=== PATIENT | female | born 1950 | race Caucasian/White ===

== ENCOUNTER 2024-06-02 07:12 | Inpatient (IN) | payer OTHER ==
[2024-06-02] VITALS (12 sets, daily range): BP systolic 89–121; BP diastolic 52–88; PULSE 97–147; RESP 14–28; TEMP 97.6–98; O2SAT 88–100
[~2024-06-02] VITALS: Ht 165.1 cm; Wt 107.0 kg
[2024-06-02 08:33] LABS: Basophils # (auto) 0.1 10 ^3/uL (0-0.2); Basophils % (auto) 0.6 % (0.0-2.0); Eosinophils # (auto) 0.4 10 ^3/uL (0-0.8); Eosinophils % (auto) 3.3 % (0.0-7.0); Hematocrit 45.3 % (36.0-46.0); Hemoglobin 14.4 g/dL (12.2-16.2); Lymphocytes # (auto) 1.9 10 ^3/uL (0.4-5.4); Lymphocytes % (auto) 13.7 % (10.0-50.0); Mean Corpuscular Hemoglobin 30.5 pg (28.0-32.0); Mean Corpuscular Hgb Conc. 31.8 g/dL (32.0-36.0); Monocytes # (auto) 0.8 10 ^3/uL (0-1.3); Monocytes % (auto) 6.2 % (0.0-12.0); Neutrophils # (auto) 10.4 10 ^3/uL (1.6-8.6); Neutrophils % (auto) 76.2 % (37.0-80.0); Nucleated Red Blood Cells % 0.1 %; Platelet Count (auto) 285 10^3/uL (140-450); Red Blood Cells 4.72 10^6/uL (4.0-5.20); Red Cell Distribution Width 15.6 % (11.8-14.3); White Blood Cell 13.6 10^3/uL (4.4-10.8)
[2024-06-02 08:40] LABS: Albumin 4.1 g/dL (3.2-4.8); Alkaline Phosphatase 56 U/L (46-116); Anion Gap 12 (5-15); Aspartate Aminotransferase 17 U/L (13-40); BUN/Creatinine Ratio 9.4 (10.0-20.0); Bilirubin, Total 0.4 mg/dL (0.2-1.0); Blood Urea Nitrogen 10 mg/dL (9-23); Calcium 9.5 mg/dL (8.7-10.4); Carbon Dioxide 21 mmol/L (20-30); Chloride 107 mmol/L (98-107); Glucose 176 mg/dL (74-106); Potassium 3.9 mmol/L (3.5-5.1); Sodium 140 mmol/L (136-145)
[2024-06-02 08:42] LABS: Alanine Aminotransferase < 9 U/L (7-40)
[2024-06-02 08:43] LABS: Base Excess -4.7 mmol/L (-2.0-3.0)
[2024-06-02] MEDS: ACETAMINOPHEN 500 MG TAB PO ONE (09:12)
[2024-06-02] MEDS: ENOXAPARIN SOD 120 MG/0.8 ML SYRINGE SC ONE (09:12)
[2024-06-02] MEDS ORDERED: FUROSEMIDE 40 MG/4 ML VIAL IV ONE (09:45)
[2024-06-02] MEDS: IOHEXOL 350 MG/ML 100ML IJ ONE (09:55)
[2024-06-02] MEDS: cefTRIAXone 1GM/50ML D5W 50 ML IV ONE (10:03)
[2024-06-02] MEDS: LORazepam 2MG/ML-1ML VIAL IV ONE (10:03)
[2024-06-02] MEDS: AZITHROMYCIN 500MG/ 250ML 250 ML IV ONE (10:35)
[2024-06-02] MEDS: HEPARIN SODIUM (PORCINE) 5000 UNITS/ML 1ML VIAL IV ONE (11:00)
[2024-06-02 11:28] LABS: Lactic Acid w/Reflex 2.1 mmol/L (0.4-2.0)
[2024-06-02 12:03] LABS: INR 1.14 (0.9-1.15); Partial Thromboplastin Time 27.4 SEC (24.5-34.5)
[2024-06-02] MEDS: ALBUMIN 25% 50 ML IV ONE ×3 (13:15→14:45)
[2024-06-02] MEDS ORDERED: NITROGLYCERIN 0.4 MG SL TAB SL PRN (13:30)
[2024-06-02] MEDS ORDERED: MORPHINE SULFATE INJ 2 MG/ml SYRG IV PRN ×3 (13:30→13:45)
[2024-06-02] MEDS ORDERED: ONDANSETRON HCL 4 MG/2 ML VIAL IV PRN (13:45)
[2024-06-02] MEDS: NOREPINEPHRINE 8 MG/250ML KIT 250 ML IV SCH (13:45)
[2024-06-02] MEDS: FAMOTIDINE 20 MG TAB PO SCH (14:00)
[2024-06-02] MEDS: fentaNYL CITRATE 100 MCG/2 ML VL ONE (14:11)
[2024-06-02] MEDS: MIDAZOLAM HCL 2MG/2ML 2ml VIAL (1mg/ml) ONE (14:11)
[2024-06-02] MEDS: IODIXANOL 320MG/ML 100ML BTL IV ONE (14:20)
[2024-06-02] MEDS: HEPARIN SODIUM (PORCINE) 5000 UNITS/ML 1ML VIAL ONE ×2 (14:52→15:49)
[2024-06-02] MEDS: HEPARIN 1,000 UNITS/ml 1ML VIAL ONE (15:23)
[2024-06-02 18:05] LABS: Urine Bacteria FEW /hpf (None Seen); Urine Blood Negative /uL (Negative); Urine Clarity Clear (Clear); Urine Color Yellow (Yellow); Urine Mucus FEW (None Seen); Urine Protein, UAD 1+ (Negative); Urine Urobilinogen Normal (Negative); Urine WBC 2 /hpf (0 - 5)
[2024-06-02 18:06] LABS: Urine Specific Gravity > 1.035 (1.001-1.035)
[2024-06-02] MEDS: HEPARIN DRIP/D5W 100UNITS/ML 250 ML IV SCH (18:30)
[2024-06-02 19:11] LABS: Body Fluid Polymorphonuclear 4 % (0-25); Body Fluid Red Blood Cells 2580 CUMM (0-2000); Body Fluid White Blood Cells 895 CUMM (0-200)
[2024-06-03] VITALS (44 sets, daily range): BP systolic 86–113; BP diastolic 53–72; PULSE 87–108; RESP 14–26; TEMP 97.9–99.1; O2SAT 89–100
[2024-06-03 01:10] LABS: INR 1.15 (0.9-1.15); Partial Thromboplastin Time 55.6 SEC (24.5-34.5); Prothrombin Time 12.1 sec (9.3-11.8)
[2024-06-03 07:24] LABS: Basophils # (auto) 0 10 ^3/uL (0-0.2); Basophils % (auto) 0.5 % (0.0-2.0); Eosinophils # (auto) 0.4 10 ^3/uL (0-0.8); Eosinophils % (auto) 3.9 % (0.0-7.0); Hematocrit 35.2 % (36.0-46.0); Hemoglobin 11.8 g/dL (12.2-16.2); Lymphocytes # (auto) 1.1 10 ^3/uL (0.4-5.4); Lymphocytes % (auto) 12.4 % (10.0-50.0); Mean Corpuscular Hgb Conc. 33.4 g/dL (32.0-36.0); Mean Corpuscular Volume 92.9 fL (80.0-100.0); Monocytes # (auto) 0.8 10 ^3/uL (0-1.3); Monocytes % (auto) 9.3 % (0.0-12.0); Neutrophils # (auto) 6.7 10 ^3/uL (1.6-8.6); Neutrophils % (auto) 73.9 % (37.0-80.0); Nucleated Red Blood Cells % 0.1 %; Platelet Count (auto) 213 10^3/uL (140-450); Red Blood Cells 3.79 10^6/uL (4.0-5.20); Red Cell Distribution Width 15.1 % (11.8-14.3); White Blood Cell 9.1 10^3/uL (4.4-10.8)
[2024-06-03 07:30] LABS: Alkaline Phosphatase 42 U/L (46-116); Anion Gap 7 (5-15); BUN/Creatinine Ratio 14.6 (10.0-20.0); Blood Urea Nitrogen 14 mg/dL (9-23); Carbon Dioxide 26 mmol/L (20-30); Chloride 108 mmol/L (98-107); Glucose 107 mg/dL (74-106); Magnesium 1.8 mg/dL (1.6-2.6); Potassium 3.6 mmol/L (3.5-5.1); Sodium 141 mmol/L (136-145)
[2024-06-03 07:31] LABS: Albumin 3.5 g/dL (3.2-4.8); Aspartate Aminotransferase 13 U/L (13-40)
[2024-06-03 07:32] LABS: Bilirubin, Total 0.4 mg/dL (0.2-1.0); Total Protein 5.8 g/dL (5.7-8.2)
[2024-06-03] MEDS ORDERED: OMEP20TA PO (07:56)
[2024-06-03] MEDS ORDERED: LOSA-533 PO ×2 (07:56→07:57)
[2024-06-03] MEDS ORDERED: LEVO125T7 PO (07:56)
[2024-06-03 08:15] LABS: INR 1.12 (0.9-1.15); Partial Thromboplastin Time 46.6 SEC (24.5-34.5); Prothrombin Time 11.8 sec (9.3-11.8)
[2024-06-03 08:39] LABS: Alanine Aminotransferase < 9 U/L (7-40)
[2024-06-03] MEDS: HEPARIN DRIP/D5W 100UNITS/ML 250 ML IV SCH ×3 (09:08→15:58)
[2024-06-03] MEDS ORDERED: LACTULOSE 20Gm/30ML SOLN PO PRN (09:15)
[2024-06-03 11:07] LABS: Albumin, Body Fluid 3.2 g/dL (Not Estab.)
[2024-06-03] MEDS: MAGNESIUM SULFATE 1GM/100ML 100 ML IV SCH (14:46)
[2024-06-03] MEDS: PROMETHAZINE W/CODEINE 5 ML ORAL SYRUP PO PRN (14:46)
[2024-06-03] MEDS: POTASSIUM CHL 20 Meq TABLET PO ONE (14:46)
[2024-06-03 15:22] LABS: INR 1.09 (0.9-1.15); Partial Thromboplastin Time 40.2 SEC (24.5-34.5); Prothrombin Time 11.5 sec (9.3-11.8)
[2024-06-03] MEDS: FAMOTIDINE 20 MG TAB PO SCH (21:10)
[2024-06-03] MEDS: DOCUSATE SOD 100 MG CAP PO SCH (21:11)
[2024-06-03 22:26] LABS: INR 1.08 (0.9-1.15); Partial Thromboplastin Time 49.5 SEC (24.5-34.5); Prothrombin Time 11.4 sec (9.3-11.8)
[2024-06-03] MEDS ORDERED: HEPARIN DRIP/D5W 100UNITS/ML 250 ML IV SCH ×2 (23:00→23:15)
[2024-06-03] MEDS: IPRATROPIUM BROM 0.5 MG/2.5ML INH SOL NEB SCH (23:40)
[2024-06-03] MEDS: ALBUTEROL SULF 2.5 MG/0.5ML(0.5%) NEB SOLN NEB SCH (23:40)
[2024-06-04] VITALS (35 sets, daily range): BP systolic 84–124; BP diastolic 57–80; PULSE 89–108; RESP 15–24; TEMP 98–98.9; O2SAT 93–99
[2024-06-04] MEDS ORDERED: ALBUTEROL SULF 2.5 MG/0.5ML(0.5%) NEB SOLN NEB SCH
[2024-06-04 05:26] LABS: Basophils # (auto) 0 10 ^3/uL (0-0.2); Basophils % (auto) 0.5 % (0.0-2.0); Eosinophils # (auto) 0.7 10 ^3/uL (0-0.8); Eosinophils % (auto) 8.3 % (0.0-7.0); Hematocrit 35.8 % (36.0-46.0); Hemoglobin 12.1 g/dL (12.2-16.2); Lymphocytes # (auto) 1.2 10 ^3/uL (0.4-5.4); Lymphocytes % (auto) 13.5 % (10.0-50.0); Mean Corpuscular Hemoglobin 31.4 pg (28.0-32.0); Mean Corpuscular Hgb Conc. 33.9 g/dL (32.0-36.0); Mean Corpuscular Volume 92.9 fL (80.0-100.0); Monocytes # (auto) 0.8 10 ^3/uL (0-1.3); Monocytes % (auto) 8.8 % (0.0-12.0); Neutrophils % (auto) 68.9 % (37.0-80.0); Nucleated Red Blood Cells % 0.1 %; Platelet Count (auto) 203 10^3/uL (140-450); Red Blood Cells 3.86 10^6/uL (4.0-5.20); Red Cell Distribution Width 15.5 % (11.8-14.3); White Blood Cell 8.7 10^3/uL (4.4-10.8)
[2024-06-04 05:33] LABS: Alanine Aminotransferase < 9 U/L (7-40); Albumin 3.3 g/dL (3.2-4.8); Alkaline Phosphatase 41 U/L (46-116); Anion Gap 6 (5-15); Aspartate Aminotransferase 10 U/L (13-40); BUN/Creatinine Ratio 14.5 (10.0-20.0); Bilirubin, Total 0.3 mg/dL (0.2-1.0); Blood Urea Nitrogen 12 mg/dL (9-23); Calcium 8.7 mg/dL (8.7-10.4); Carbon Dioxide 25 mmol/L (20-30); Chloride 108 mmol/L (98-107); Glucose 125 mg/dL (74-106); Magnesium 2.1 mg/dL (1.6-2.6); Potassium 4.4 mmol/L (3.5-5.1); Sodium 139 mmol/L (136-145); Total Protein 5.5 g/dL (5.7-8.2)
[2024-06-04] MEDS: LEVOTHYROXINE SODIUM 50 MCG TAB PO SCH (05:52)
[2024-06-04 06:33] LABS: INR 1.1 (0.9-1.15); Partial Thromboplastin Time 56.9 SEC (24.5-34.5); Prothrombin Time 11.6 sec (9.3-11.8)
[2024-06-04] MEDS: POLYETHYLENE GLYCOL 17 GM PWDR PO SCH (08:27)
[2024-06-04] MEDS: PIPERACILLIN-TAZOB 3.375GM 100 ML IV SCH (08:28)
[2024-06-04] MEDS ORDERED: PANTOPRAZOLE 40 MG/10 ML VIAL INJ IV SCH (10:00)
[2024-06-04] MEDS ORDERED: CLOPIDOGREL BISULFATE 75 MG TAB PO SCH (10:00)
[2024-06-04 12:25] LABS: INR 1.09 (0.9-1.15); Partial Thromboplastin Time 61.5 SEC (24.5-34.5); Prothrombin Time 11.5 sec (9.3-11.8)
[2024-06-04 19:54] LABS: INR 1.08 (0.9-1.15); Partial Thromboplastin Time 54.1 SEC (24.5-34.5); Prothrombin Time 11.4 sec (9.3-11.8)
[2024-06-05] VITALS (8 sets, daily range): BP systolic 109–117; BP diastolic 70–83; PULSE 75–99; RESP 17–20; TEMP 97.7–98.3; O2SAT 9–96
[2024-06-05] MEDS: APIXABAN 5 MG TAB PO NR ×2 (00:27→00:48)
[2024-06-05 06:35] LABS: Basophils # (auto) 0 10 ^3/uL (0-0.2); Basophils % (auto) 0.4 % (0.0-2.0); Eosinophils # (auto) 0.5 10 ^3/uL (0-0.8); Eosinophils % (auto) 6.5 % (0.0-7.0); Hematocrit 37.1 % (36.0-46.0); Hemoglobin 12.4 g/dL (12.2-16.2); Lymphocytes % (auto) 11.6 % (10.0-50.0); Mean Corpuscular Hemoglobin 30.9 pg (28.0-32.0); Mean Corpuscular Hgb Conc. 33.4 g/dL (32.0-36.0); Mean Corpuscular Volume 92.5 fL (80.0-100.0); Monocytes # (auto) 0.8 10 ^3/uL (0-1.3); Monocytes % (auto) 9.2 % (0.0-12.0); Neutrophils # (auto) 6.1 10 ^3/uL (1.6-8.6); Neutrophils % (auto) 72.3 % (37.0-80.0); Platelet Count (auto) 217 10^3/uL (140-450); Red Blood Cells 4.01 10^6/uL (4.0-5.20); Red Cell Distribution Width 15.3 % (11.8-14.3); White Blood Cell 8.4 10^3/uL (4.4-10.8)
[2024-06-05 06:41] LABS: Albumin 3.5 g/dL (3.2-4.8); Alkaline Phosphatase 45 U/L (46-116); Anion Gap 6 (5-15); Aspartate Aminotransferase 10 U/L (13-40); BUN/Creatinine Ratio 11.6 (10.0-20.0); Blood Urea Nitrogen 10 mg/dL (9-23); Calcium 9.1 mg/dL (8.7-10.4); Carbon Dioxide 27 mmol/L (20-30); Chloride 106 mmol/L (98-107); Glucose 128 mg/dL (74-106); Magnesium 2.2 mg/dL (1.6-2.6); Potassium 4.7 mmol/L (3.5-5.1); Sodium 139 mmol/L (136-145)
[2024-06-05 06:42] LABS: Bilirubin, Total 0.4 mg/dL (0.2-1.0); Total Protein 5.8 g/dL (5.7-8.2)
[2024-06-05 06:43] LABS: Alanine Aminotransferase < 9 U/L (7-40)
[2024-06-06] VITALS (8 sets, daily range): BP systolic 104–138; BP diastolic 46–80; PULSE 63–105; RESP 16–19; TEMP 97.6–99; O2SAT 90–95
[2024-06-06] MEDS: OMNIPAQUE 12mg/ml 500ml ORAL SOLUTION PO ONE (07:32)
[2024-06-06 07:40] LABS: Basophils # (auto) 0 10 ^3/uL (0-0.2); Basophils % (auto) 0.4 % (0.0-2.0); Eosinophils # (auto) 0.7 10 ^3/uL (0-0.8); Eosinophils % (auto) 9.2 % (0.0-7.0); Hematocrit 39.7 % (36.0-46.0); Hemoglobin 12.9 g/dL (12.2-16.2); Lymphocytes # (auto) 0.9 10 ^3/uL (0.4-5.4); Lymphocytes % (auto) 11.5 % (10.0-50.0); Mean Corpuscular Hgb Conc. 32.6 g/dL (32.0-36.0); Monocytes # (auto) 0.8 10 ^3/uL (0-1.3); Monocytes % (auto) 10.3 % (0.0-12.0); Neutrophils # (auto) 5.2 10 ^3/uL (1.6-8.6); Neutrophils % (auto) 68.6 % (37.0-80.0); Platelet Count (auto) 215 10^3/uL (140-450); Red Blood Cells 4.18 10^6/uL (4.0-5.20); White Blood Cell 7.6 10^3/uL (4.4-10.8)
[2024-06-06 07:42] LABS: Anion Gap 8 (5-15); Carbon Dioxide 26 mmol/L (20-30); Chloride 104 mmol/L (98-107); Potassium 4.7 mmol/L (3.5-5.1); Sodium 138 mmol/L (136-145)
[2024-06-06 07:43] LABS: Calcium 9.3 mg/dL (8.7-10.4)
[2024-06-06 07:49] LABS: Glucose 111 mg/dL (74-106)
[2024-06-06 07:50] LABS: BUN/Creatinine Ratio 10.6 (10.0-20.0); Blood Urea Nitrogen 9 mg/dL (9-23)
[2024-06-06] MEDS: IOHEXOL 300 MG/ML 100ML BOTTLE IJ ONE (10:43)
[2024-06-06] MEDS ORDERED: APIX5TAB4 PO (15:46)
[2024-06-06] MEDS ORDERED: LOSA-533 PO (15:48)
[2024-06-07 00:44] VITALS: BP 123/86; PULSE 90; RESP 18; TEMP 98.2; O2SAT 94
[2024-06-07 05:00] VITALS: BP 122/82; PULSE 88; RESP 18; TEMP 97.6; O2SAT 94
[2024-06-07 08:00] VITALS: PULSE 84; PULSE 90; RESP 20; O2SAT 99
[2024-06-07 09:00] VITALS: BP 116/75; PULSE 90; RESP 20; TEMP 97.8; O2SAT 99
[2024-06-07 11:33] VITALS: BP 116/75; PULSE 90; RESP 20; TEMP 97.8; O2SAT 99
[2024-06-07 13:00] VITALS: BP 108/75; PULSE 92; RESP 18; TEMP 97.9; O2SAT 93
[2024-06-11] MEDS ORDERED: APIXABAN 5 MG TAB PO SCH (22:00)
== END 2024-06-07 15:05 | disposition home health service (06) | DRG 163 ==
LOC: ER 07:12 → EDBD 07:12 → TELE 13:32 → DOU IN ICU 17:01 → TELE-WESTW 06-04 13:37
PROVIDERS: ADMIT Hospitalist; ATTEND Hospitalist
PROC: 02CR3ZZ Extirpation of Matter from Left Pulmonary Artery, Percutaneous Approach (ICD-10-PCS; principal; 2024-06-02)
PROC: 02CQ3ZZ Extirpation of Matter from Right Pulmonary Artery, Percutaneous Approach (ICD-10-PCS; 2024-06-02)
PROC: B31T1ZZ Fluoroscopy of Left Pulmonary Artery using Low Osmolar Contrast (ICD-10-PCS; 2024-06-02)
PROC: B31S1ZZ Fluoroscopy of Right Pulmonary Artery using Low Osmolar Contrast (ICD-10-PCS; 2024-06-02)
PROC: 0W9G3ZZ Drainage of Peritoneal Cavity, Percutaneous Approach (ICD-10-PCS; 2024-06-02)
DX: I26.99 Other pulmonary embolism without acute cor pulmonale (principal); J96.01 Acute respiratory failure with hypoxia; E87.20 Acidosis, unspecified; J90 Pleural effusion, not elsewhere classified; J98.11 Atelectasis; R18.8 Other ascites; E66.01 Morbid (severe) obesity due to excess calories; I10 Essential (primary) hypertension; K59.00 Constipation, unspecified; K74.60 Unspecified cirrhosis of liver; M43.16 Spondylolisthesis, lumbar region; M47.816 Spondylosis without myelopathy or radiculopathy, lumbar region; J84.10 Pulmonary fibrosis, unspecified; J43.9 Emphysema, unspecified; Z82.49 Family history of ischemic heart disease and other diseases of the circulatory system; Z68.38 Body mass index [BMI] 38.0-38.9, adult
CPT/HCPCS: 36415; 36600; 37184; 49083; 71045; 71275; 74177; 76705; 76942; 80048; 80053; 81001; 82378; 82805; 83605; 83735; 83880; 84484; 85025; 85610; 85730; 86301; 86304; 87040; 87081; 87086; 87205; 89051; 93005; 93306; 93970; 94640; 96365; 96368; 96372; 96375; 97110; 97116; 97163; 97530; 99152; 99291; C1769; C1894; G0378; J2250; J2543; Q9967